=== PATIENT | male | born 1970 | race Caucasian/White ===

== ENCOUNTER 2019-11-29 21:17 | Inpatient (IN) ==
[2019-11-29] MEDS ORDERED: LIDOCAINE 1% 20 ML VIAL ONE (21:26)
[2019-11-29] MEDS ORDERED: TIROFIBAN 5,000 MCG/100 ML PREMIX IV ONE (21:35)
[2019-11-29] MEDS ORDERED: HEPARIN 5,000 UNIT/1 ML VIAL ONE (21:43)
[2019-11-29] MEDS ORDERED: MIDAZOLAM 2 MG/2 ML VIAL ONE (21:46)
[2019-11-29] MEDS ORDERED: HYDROmorphone 2 MG/1 ML VIAL ONE (21:46)
[2019-11-29] MEDS ORDERED: ZALEPLON 5 MG CAPSULE PO PRN (22:21)
[2019-11-29] MEDS ORDERED: ONDANSETRON 4 MG/2 ML VIAL IV PRN (22:21)
[2019-11-29] MEDS ORDERED: carvediloL 3.125 MG TABLET PO ONE (22:30)
[2019-11-29 23:42] LABS: CKMB % 8.6 %
[2019-11-29 23:44] LABS: Troponin I 1.77 NG/ML (0.00-0.045)
[2019-11-30] MEDS: ROSUVASTATIN 20 MG TABLET PO SCH ×2 (02:15→09:03)
[2019-11-30] MEDS ORDERED: GLUCAGON 1 MG VIAL IM PRN ×2 (04:14→13:30)
[2019-11-30] MEDS ORDERED: DEXTROSE 50% 25 GM/50 ML VIAL IV PRN ×3 (04:14→13:30)
[2019-11-30 05:07] LABS: Basophils % 0.2 % (0.0-0.8); Eosinophils # 0.1 10*3/uL (0.0-0.87); Eosinophils % 0.7 % (0.00-10.9); Hematocrit 37.6 VOL% (42.0-52.0); Hemoglobin 12.8 GM/DL (14.0-18.0); Immature Granulocytes % 0.6 %; Immature Granulocytes Absolute 0.06 #; Lymphocytes # 2.6 10*3/uL (1.4-4.0); Lymphocytes % 24.1 % (21.2-54.2); Mean Corpuscular Volume 96.2 FL (87-102); Mean Platelet Volume 10.1 FL (9.6-12.0); Monocytes % 6.2 % (1.7-12.7); Neutrophils % 68.2 % (38.7-73.9); Platelet Count 224 T/CUMM (130-400); Red Blood Count 3.91 MC/CUMM (3.8-5.5); Red Cell Distribution Width 12.7 % (9.3-17.3); White Blood Count 10.7 T/CUMM (4-12)
[2019-11-30 05:24] LABS: Albumin 3.3 G/DL (3.4-5.0); Bilirubin,Direct 0.12 MG/DL (0.0-0.20); Bilirubin,Indirect 0.3 MG/DL (0.0-1.0); Bilirubin,Total 0.4 MG/DL (0.2-1.0); Calcium 8.7 MG/DL (8.5-10.1); Osmolality,Calculated 276.7 MOS/KG (273-304); Total Protein 6.6 G/DL (6.4-8.3)
[2019-11-30 05:26] LABS: CKMB % 16.3 %; Calcium 8.7 MG/DL (8.5-10.1); Osmolality,Calculated 274.8 MOS/KG (273-304)
[2019-11-30 05:27] LABS: Troponin I 10.3 NG/ML (0.00-0.045)
[2019-11-30] MEDS: INSULIN REGULAR 100 UNIT/ML SUBCUT SCH ×3 (06:43→17:30)
[2019-11-30] MEDS ORDERED: carvediloL 3.125 MG TABLET PO SCH (08:00)
[2019-11-30 08:25] LABS: Barbiturates Screen,Urine Negative (Negative); Benzodiazepines Screen,Urine Positive (Negative); Cannabinoid Screen,Urine Positive (Negative); Opiate Screen,Urine Positive (Negative); Phencyclidine Screen,Urine Negative (Negative)
[2019-11-30] MEDS ORDERED: ASPIRIN EC 81 MG TABLET PO SCH (09:00)
[2019-11-30] MEDS ORDERED: ENOXAPARIN 40 MG/0.4 ML SYRINGE SUBCUT SCH (09:00)
[2019-11-30] MEDS ORDERED: ACETAMINOPHEN 325 MG TABLET PO PRN (09:02)
[2019-11-30] MEDS ORDERED: LOSARTAN 25 MG TABLET PO SCH (09:46)
[2019-11-30] MEDS: NITROGLYCERIN SL 0.4 MG TABLET SL PRN ×2 (11:17→12:57)
[2019-11-30] MEDS ORDERED: carvediloL 6.25 MG TABLET PO ONE (11:21)
[2019-11-30] MEDS ORDERED: ASCORBIC ACID 500 MG TABLET PO SCH (11:22)
[2019-11-30] MEDS ORDERED: diphenhydrAMINE CAP 25 MG CAPSULE PO PRN (11:22)
[2019-11-30] MEDS ORDERED: MAGNESIUM HYDROXIDE SUSP 30 ML UDCUP PO PRN (11:22)
[2019-11-30] MEDS ORDERED: CLORAZEPATE 3.75 MG TABLET PO PRN (11:29)
[2019-11-30] MEDS ORDERED: CLORAZEPATE 3.75 MG TABLET PO ONE (11:30)
[2019-11-30] MEDS: NITROGLYCERIN 2% OINT 1 INCH/GM PACK TOP SCH ×2 (11:50→11:59)
[2019-11-30] MEDS ORDERED: MAGNESIUM SULF RIDER 2 GM in PREMIX 1 EACH IV ONE (11:58)
[2019-11-30] MEDS ORDERED: NITROGLYCERIN DRIP 50 MG/250 ML BOTTLE IV PRN ×2 (12:40→19:26)
[2019-11-30] MEDS ORDERED: ALUM/MAG/SIMETH/LIDO VISC 1:1 30 ML BOTTLE PO PRN (12:40)
[2019-11-30] MEDS ORDERED: HEPARIN DRIP 25,000 UNITS/500 ML PREMIX IV SCH (13:00)
[2019-11-30] MEDS ORDERED: PANTOPRAZOLE 40 MG VIAL IV SCH (13:00)
[2019-11-30] MEDS ORDERED: MORPHINE 4 MG/1 ML VIAL ONE (13:09)
[2019-11-30] MEDS ORDERED: PAPAVERINE 60 MG/2 ML VIAL ONE (13:19)
[2019-11-30] MEDS ORDERED: VANCOMYCIN 500 MG VIAL ONE (13:20)
[2019-11-30] MEDS ORDERED: VANCOMYCIN 1,000 MG VIAL ONE (13:20)
[2019-11-30] MEDS ORDERED: MORPHINE 4 MG/1 ML VIAL IV ONE (13:22)
[2019-11-30] MEDS ORDERED: CEFUROXIME INJ 1,500 MG in SYRINGE 1 EACH IV ONE (13:30)
[2019-11-30] MEDS ORDERED: SODIUM CHLORIDE 0.9% 1,000 ML IV SCH (13:30)
[2019-11-30] MEDS: CHLORHEXIDINE 4% SOLN 118 ML BOTTLE TOP SCH ×2 (13:42→15:57)
[2019-11-30 14:49] LABS: ABG Base Excess -0.8 MMOL/L (-2.5-2.5); ABG HCO3 23.8 MMOL/L (20-26); ABG PCO2 44.3 MM HG (35-48); ABG PH 7.358 (7.35-7.45); ABG TCO2 22.1 MMOL/L (23-27); Glucose Heart Surgery 146 MG/DL (74-106); Hemoglobin Heart Surgery 12.4 G/DL (14.0-18.0); Ionized Calcium Arterial 1.22 MMOL/L (1.21-1.46); PCO2 Patient Temp Arterial 44.3 MMHG; PH Patient Temp Arterial 7.358; Patient Temperature 37 CELCIUS; Potassium Heart/CVR 3.7 MMOL/L (3.5-5.1); Sodium Heart/CVR 135 MMOL/L (135-145)
[2019-11-30 14:55] LABS: Bacteria,Urine Occasional /HPF (Few); Bilirubin,Urine Negative (Negative); Blood, Urine Moderate mg/dL (Negative); Glucose,Urine (UA) Negative (Negative); Hyaline Casts,Urine 3 /LPF (0-3); Ketones,Urine Negative (Negative); Mucus,Urine Occasional /LPF (Occasional); Nitrite,Urine Negative (Negative); Protein,Urine Negative; RBC,Urine 7 /HPF (0-4); Urine Appearance CLEAR (Clear); Urine Color Yellow (Yellow); Urine Specific Gravity 1.027 (1.001-1.035); WBC,Urine 1 /HPF (0-6)
[2019-11-30] MEDS ORDERED: ALBUMIN 5% 12.5 GM/250 ML VIAL IV ONE (15:29)
[2019-11-30] MEDS ORDERED: PHENYLEPHRINE DRIP 40 MG/250 ML PREMIX IV ONE (15:29)
[2019-11-30] MEDS ORDERED: fentaNYL 250 MCG/5 ML VIAL ONE (16:07)
[2019-11-30] MEDS ORDERED: PHENYLEPHRINE DRIP 20 MG/250 ML PREMIX IV ONE (16:07)
[2019-11-30] MEDS ORDERED: CALCIUM CHLORIDE 1,000 MG/10 ML VIAL IV ONE (16:07)
[2019-11-30] MEDS ORDERED: LIDOCAINE 2% 5 ML VIAL ONE ×2 (16:07→17:22)
[2019-11-30] MEDS ORDERED: MIDAZOLAM 2 MG/2 ML VIAL ONE (16:07)
[2019-11-30] MEDS ORDERED: HEPARIN/NACL 0.9% 2 UNITS/ML 500 ML IV ONE (16:07)
[2019-11-30] MEDS ORDERED: ETOMIDATE 40 MG/20 ML VIAL IV ONE (16:08)
[2019-11-30] MEDS ORDERED: VECURONIUM 10 MG VIAL IV ONE (16:08)
[2019-11-30] MEDS ORDERED: AMINOCAPROIC ACID 5,000 MG/20 ML VIAL ONE (16:08)
[2019-11-30] MEDS ORDERED: MIDAZOLAM 10 MG/2 ML VIAL ONE (16:08)
[2019-11-30] MEDS ORDERED: SODIUM CHLORIDE 0.9% 1,000 ML IV ONE (16:09)
[2019-11-30] MEDS ORDERED: SODIUM CHLORIDE 0.9% 250 ML IV ONE (16:09)
[2019-11-30] MEDS ORDERED: SEVOFLURANE 1 UNIT/15 MINUTE INH ONE (16:09)
[2019-11-30] MEDS ORDERED: LACTATED RINGERS 1,000 ML IV ONE (16:09)
[2019-11-30 16:20] LABS: Glucose Heart Surgery 281 MG/DL (74-106); Hemoglobin Heart Surgery 9.1 G/DL (14.0-18.0); Potassium Heart/CVR 4.5 MMOL/L (3.5-5.1); Sodium Heart/CVR 125 MMOL/L (135-145); VBG Base Excess 0.3 MEQ/L (0-4); VBG HCO3 25.4 MEQ/L (24-28); VBG Oxygen Saturation 75.2 %; VBG PCO2 43.2 MMHG (41-51); VBG PH 7.388; VBG PO2 40.8 MMHG (17-40)
[2019-11-30 16:52] LABS: Hematocrit Heart Surgery 28.7 PERCENT (42-52); Hemoglobin Heart Surgery 9.2 G/DL (14.0-18.0); PCO2 Patient Temp Venous 42.4 MM HG; PH Patient Temp Venous 7.382; PO2 Patient Temp Venous 36.4 MM HG; Potassium Heart/CVR 4.9 MMOL/L (3.5-5.1); VBG Base Excess 0.1 MEQ/L (0-4); VBG Oxygen Saturation 66.4 %; VBG PCO2 42.4 MMHG (41-51); VBG PH 7.382; VBG PO2 36.4 MMHG (17-40)
[2019-11-30] MEDS ORDERED: carvediloL 6.25 MG TABLET PO SCH (17:00)
[2019-11-30 17:19] LABS: ABG Base Excess -1.3 MMOL/L (-2.5-2.5); ABG HCO3 23.3 MMOL/L (20-26); ABG PCO2 41.2 MM HG (35-48); ABG PH 7.371 (7.35-7.45); ABG TCO2 21.7 MMOL/L (23-27); Glucose Heart Surgery 227 MG/DL (74-106); Hematocrit Heart Surgery 31.6 PERCENT (42-52); Hemoglobin Heart Surgery 10.2 G/DL (14.0-18.0); Ionized Calcium Arterial 1.26 MMOL/L (1.21-1.46); PCO2 Patient Temp Arterial 41.2 MMHG; PH Patient Temp Arterial 7.371; Patient Temperature 37 CELCIUS; Potassium Heart/CVR 4.1 MMOL/L (3.5-5.1); Sodium Heart/CVR 131 MMOL/L (135-145)
[2019-11-30] MEDS ORDERED: FUROSEMIDE 20 MG/2 ML VIAL ONE (17:22)
[2019-11-30] MEDS ORDERED: ALBUMIN 25% 25 GM/100 ML VIAL IV ONE (17:22)
[2019-11-30] MEDS ORDERED: PROTAMINE SULFATE 250 MG/25 ML VIAL IV ONE (17:22)
[2019-11-30] MEDS ORDERED: HEPARIN 10,000 UNIT/10 ML VIAL ONE (17:22)
[2019-11-30] MEDS ORDERED: MANNITOL 100 GM/500 ML BAG IV ONE (17:22)
[2019-11-30] MEDS ORDERED: methylPREDNISolone SOD SUC 1,000 MG/8 ML VIAL ONE (17:22)
[2019-11-30] MEDS ORDERED: DEXTROSE 5% KCL 20 MEQ 20 MEQ/1,000 ML BAG IV ONE (17:22)
[2019-11-30] MEDS ORDERED: MAGNESIUM SULFATE 5 GM/10 ML VIAL IV ONE (17:22)
[2019-11-30] MEDS ORDERED: SODIUM BICARBONATE 50 MEQ/50 ML VIAL IV ONE (17:22)
[2019-11-30] MEDS ORDERED: PROTAMINE SULFATE 50 MG/5 ML VIAL IV ONE ×2 (17:23→18:23)
[2019-11-30] MEDS: LACTATED RINGERS 1,000 ML IV PRN ×2 (18:15→19:10)
[2019-11-30 18:26] LABS: ABG Base Excess 0.2 MMOL/L (-2.5-2.5); ABG HCO3 24.6 MMOL/L (20-26); ABG PCO2 39.9 MM HG (35-48); ABG PH 7.403 (7.35-7.45); ABG PO2 84.9 MM HG (80-95); ABG TCO2 22.3 MMOL/L (23-27); Glucose Heart Surgery 196 MG/DL (74-106); Hematocrit Heart Surgery 34.6 PERCENT (42-52); Hemoglobin Heart Surgery 11.2 G/DL (14.0-18.0)
[2019-11-30 18:28] LABS: Basophils % 0.1 % (0.0-0.8); Eosinophils # 0.1 10*3/uL (0.0-0.87); Eosinophils % 0.4 % (0.00-10.9); Hematocrit 32.4 VOL% (42.0-52.0); Hemoglobin 11.1 GM/DL (14.0-18.0); Immature Granulocytes % 1.4 %; Immature Granulocytes Absolute 0.18 #; Lymphocytes # 0.7 10*3/uL (1.4-4.0); Lymphocytes % 5.9 % (21.2-54.2); Mean Corpuscular HGB Conc 34.3 GM/DL (32-36); Mean Corpuscular Volume 95.9 FL (87-102); Mean Platelet Volume 10.1 FL (9.6-12.0); Monocytes % 5.1 % (1.7-12.7); Neutrophils % 87.1 % (38.7-73.9); Platelet Count 176 T/CUMM (130-400); Red Blood Count 3.38 MC/CUMM (3.8-5.5); Red Cell Distribution Width 12.6 % (9.3-17.3); White Blood Count 12.5 T/CUMM (4-12)
[2019-11-30] MEDS ORDERED: SODIUM CHLORIDE 0.45% 1,000 ML IV SCH ×2 (18:30)
[2019-11-30 18:36] LABS: INR 1.1; PT Patient Result 11.8 SECS (9.8-11.9); Partial Thromboplastin Time 27.6 SECS (23.9-33.8)
[2019-11-30] MEDS ORDERED: MIDAZOLAM 2 MG/2 ML VIAL IV ONE (18:40)
[2019-11-30 18:45] LABS: Albumin 3.2 G/DL (3.4-5.0); Bilirubin,Total 0.9 MG/DL (0.2-1.0); Calcium 8.9 MG/DL (8.5-10.1); Osmolality,Calculated 273.2 MOS/KG (273-304)
[2019-11-30 19:24] LABS: Hematocrit Heart Surgery 35.1 PERCENT (42-52); Hemoglobin Heart Surgery 11.4 G/DL (14.0-18.0); PCO2 Patient Temp Venous 44.8 MM HG; PH Patient Temp Venous 7.39; PO2 Patient Temp Venous 35.6 MM HG; Potassium Heart/CVR 3.7 MMOL/L (3.5-5.1); VBG Base Excess 1.7 MEQ/L (0-4); VBG HCO3 25.3 MEQ/L (24-28); VBG PCO2 44.8 MMHG (41-51); VBG PH 7.39; VBG PO2 35.6 MMHG (17-40)
[2019-11-30] MEDS ORDERED: MIDAZOLAM 2 MG/2 ML VIAL IV PRN ×2 (19:44→20:09)
[2019-11-30] MEDS ORDERED: MORPHINE 4 MG/1 ML VIAL IV PRN ×2 (20:19→20:24)
[2019-11-30] MEDS ORDERED: MAGNESIUM SULF RIDER 2 GM in PREMIX 1 EACH IV PRN (20:27)
[2019-11-30] MEDS ORDERED: MAGNESIUM SULF RIDER 4 GM in PREMIX 1 EACH IV PRN (20:27)
[2019-11-30 20:32] LABS: ABG Base Excess 0.3 MMOL/L (-2.5-2.5); ABG HCO3 24.7 MMOL/L (20-26); ABG Oxygen Saturation 98.6 % (95-100); ABG PCO2 39.1 MM HG (35-48); ABG TCO2 22.3 MMOL/L (23-27); Glucose Heart Surgery 204 MG/DL (74-106); Hematocrit Heart Surgery 33.5 PERCENT (42-52); Hemoglobin Heart Surgery 10.8 G/DL (14.0-18.0); Potassium Heart/CVR 3.8 MMOL/L (3.5-5.1)
[2019-11-30] MEDS ORDERED: POTASSIUM CHLORIDE RIDER 10 MEQ in PREMIX 1 EACH IV PRN (20:35)
[2019-11-30] MEDS ORDERED: INSULIN REGULAR 100 UNIT/ML IV PRN (20:37)
[2019-11-30] MEDS ORDERED: ACETAMINOPHEN 650 MG SUPP RECTAL PRN (20:42)
[2019-11-30] MEDS ORDERED: ONDANSETRON 4 MG/2 ML VIAL IV PRN (20:54)
[2019-11-30] MEDS ORDERED: CALCIUM CHLORIDE 1,000 MG/10 ML SYRINGE IV PRN (20:55)
[2019-11-30] MEDS ORDERED: VECURONIUM 10 MG VIAL IV PRN ×2 (20:57→20:58)
[2019-11-30] MEDS ORDERED: PHENYLEPHRINE DRIP 40 MG/250 ML PREMIX IV PRN (20:59)
[2019-11-30] MEDS ORDERED: CEFUROXIME INJ 1,500 MG in SYRINGE 1 EACH IV SCH (21:00)
[2019-11-30] MEDS ORDERED: CHLORHEXIDINE 0.12% ORAL RINSE 60 ML BOTTLE SWISH/SPIT SCH (21:00)
[2019-11-30 21:03] LABS: Troponin I 13.1 NG/ML (0.00-0.045)
[2019-11-30] MEDS ORDERED: INSULIN REGULAR DRIP 100 ML IV PRN (21:15)
[2019-11-30] MEDS: POTASSIUM CHLORIDE RIDER 20 MEQ in PREMIX 1 EACH IV PRN ×2 (21:16→23:11)
[2019-11-30] MEDS ORDERED: ALBUMIN 5% 12.5 GM in PREMIX 1 EACH IV PRN (21:21)
[2019-11-30] MEDS ORDERED: FUROSEMIDE 40 MG/4 ML VIAL IV PRN (21:38)
[2019-11-30] MEDS: CHLORHEXIDINE 0.12% ORAL RINSE 60 ML BOTTLE SWISH/SPIT SCH (21:52)
[2019-11-30] MEDS: KETOROLAC 30 MG/1 ML VIAL IV SCH (22:00)
[2019-11-30 22:58] LABS: ABG Base Excess -0.1 MMOL/L (-2.5-2.5); ABG HCO3 24.3 MMOL/L (20-26); ABG Oxygen Saturation 98.3 % (95-100); ABG PCO2 38.9 MM HG (35-48); ABG PH 7.414 (7.35-7.45); ABG PO2 122.2 MM HG (80-95); ABG TCO2 25.5 MMOL/L (23-27); Glucose Heart Surgery 212 MG/DL (74-106); Hemoglobin Heart Surgery 11.5 G/DL (14.0-18.0); Potassium Heart/CVR 3.9 MMOL/L (3.5-5.1)
[2019-12-01 00:04] LABS: ABG Base Excess -0.8 MMOL/L (-2.5-2.5); ABG HCO3 23.5 MMOL/L (20-26); ABG Oxygen Saturation 98.1 % (95-100); ABG PCO2 37.7 MM HG (35-48); ABG PH 7.413 (7.35-7.45); ABG PO2 117.3 MM HG (80-95); ABG TCO2 24.7 MMOL/L (23-27); Glucose Heart Surgery 189 MG/DL (74-106); Hemoglobin Heart Surgery 11.6 G/DL (14.0-18.0)
[2019-12-01] MEDS: CEFUROXIME INJ 1,500 MG in SYRINGE 1 EACH IV SCH ×2 (00:46→12:00)
[2019-12-01 01:14] LABS: ABG Base Excess -0.5 MMOL/L (-2.5-2.5); ABG PCO2 37.3 MM HG (35-48); ABG PH 7.413 (7.35-7.45); ABG PO2 79.6 MM HG (80-95); ABG TCO2 21.3 MMOL/L (23-27); Glucose Heart Surgery 167 MG/DL (74-106); Hematocrit Heart Surgery 34.5 PERCENT (42-52); Hemoglobin Heart Surgery 11.2 G/DL (14.0-18.0)
[2019-12-01] MEDS: POTASSIUM CHLORIDE RIDER 20 MEQ in PREMIX 1 EACH IV PRN ×2 (01:39→04:27)
[2019-12-01 01:55] LABS: ABG Base Excess -0.4 MMOL/L (-2.5-2.5); ABG Oxygen Saturation 96.9 % (95-100); ABG PCO2 39.4 MM HG (35-48); ABG PH 7.397 (7.35-7.45); ABG TCO2 21.7 MMOL/L (23-27); Glucose Heart Surgery 159 MG/DL (74-106); Hematocrit Heart Surgery 34.8 PERCENT (42-52); Hemoglobin Heart Surgery 11.3 G/DL (14.0-18.0)
[2019-12-01 04:10] LABS: Basophils % 0.1 % (0.0-0.8); Hematocrit 32.8 VOL% (42.0-52.0); Immature Granulocytes % 0.6 %; Immature Granulocytes Absolute 0.08 #; Lymphocytes # 0.8 10*3/uL (1.4-4.0); Lymphocytes % 5.7 % (21.2-54.2); Mean Corpuscular HGB Conc 33.5 GM/DL (32-36); Mean Corpuscular Volume 96.2 FL (87-102); Mean Platelet Volume 10.2 FL (9.6-12.0); Monocytes % 4.1 % (1.7-12.7); Neutrophils % 89.5 % (38.7-73.9); Platelet Count 178 T/CUMM (130-400); Red Blood Count 3.41 MC/CUMM (3.8-5.5); Red Cell Distribution Width 12.6 % (9.3-17.3); White Blood Count 13.7 T/CUMM (4-12)
[2019-12-01 04:13] LABS: ABG Base Excess -0.3 MMOL/L (-2.5-2.5); ABG HCO3 23.9 MMOL/L (20-26); ABG Oxygen Saturation 94.9 % (95-100); ABG PCO2 37.1 MM HG (35-48); ABG PH 7.426 (7.35-7.45); ABG PO2 75.4 MM HG (80-95); Glucose Heart Surgery 127 MG/DL (74-106); Hemoglobin Heart Surgery 11.9 G/DL (14.0-18.0); Potassium Heart/CVR 4.1 MMOL/L (3.5-5.1)
[2019-12-01] MEDS: KETOROLAC 30 MG/1 ML VIAL IV SCH ×4 (04:27→21:58)
[2019-12-01 04:34] LABS: CKMB % 15.1 %
[2019-12-01 04:35] LABS: INR 1.1; PT Patient Result 11.5 SECS (9.8-11.9); Partial Thromboplastin Time 27.3 SECS (23.9-33.8)
[2019-12-01 04:36] LABS: Albumin 3.3 G/DL (3.4-5.0); Bilirubin,Total 0.5 MG/DL (0.2-1.0); Calcium 8.2 MG/DL (8.5-10.1); Osmolality,Calculated 274.8 MOS/KG (273-304)
[2019-12-01 04:45] LABS: Troponin I 22.9 NG/ML (0.00-0.045)
[2019-12-01] MEDS ORDERED: PANTOPRAZOLE 40 MG VIAL IV ONE ×2 (08:25→08:30)
[2019-12-01] MEDS: CHLORHEXIDINE 0.12% ORAL RINSE 60 ML BOTTLE SWISH/SPIT SCH ×2 (08:58→21:57)
[2019-12-01] MEDS ORDERED: GLUCAGON 1 MG VIAL IM PRN (09:48)
[2019-12-01] MEDS ORDERED: MAGNESIUM SULF RIDER 4 GM in PREMIX 1 EACH IV PRN (09:48)
[2019-12-01] MEDS ORDERED: MAGNESIUM HYDROXIDE SUSP 30 ML UDCUP PO PRN (09:48)
[2019-12-01] MEDS ORDERED: ONDANSETRON 4 MG/2 ML VIAL IV PRN (09:48)
[2019-12-01] MEDS ORDERED: ACETAMINOPHEN 325 MG TABLET PO PRN (09:48)
[2019-12-01] MEDS ORDERED: ALUMINUM/MAGNES/SIMETH MAX STR 30 ML UDCUP PO PRN (09:48)
[2019-12-01] MEDS ORDERED: ZALEPLON 5 MG CAPSULE PO PRN (09:48)
[2019-12-01] MEDS ORDERED: MAGNESIUM SULF RIDER 2 GM in PREMIX 1 EACH IV PRN (09:48)
[2019-12-01] MEDS ORDERED: DEXTROSE 50% 25 GM/50 ML VIAL IV PRN (09:48)
[2019-12-01] MEDS: ASPIRIN EC 81 MG TABLET PO SCH (10:00)
[2019-12-01] MEDS: carvediloL 6.25 MG TABLET PO SCH ×2 (10:00→17:06)
[2019-12-01] MEDS ORDERED: SODIUM CHLOR 0.45% KCL 20 MEQ 20 MEQ/1,000 ML BAG IV SCH (10:00)
[2019-12-01] MEDS: OMEPRAZOLE ODT 20 MG TABLET PO SCH (11:50)
[2019-12-01] MEDS: oxyCODONE/ACETAMINOPHEN 5-325 MG TABLET PO PRN (12:01)
[2019-12-01] MEDS: LORATADINE/PSEUDOEPH 5-120 MG (12 HR) TABLET PO SCH ×2 (16:42→23:13)
[2019-12-01] MEDS ORDERED: ROSUVASTATIN 20 MG TABLET PO SCH (21:00)
[2019-12-02] MEDS: CEFUROXIME INJ 1,500 MG in SYRINGE 1 EACH IV SCH (00:26)
[2019-12-02] MEDS: KETOROLAC 30 MG/1 ML VIAL IV SCH (03:37)
[2019-12-02] MEDS ORDERED: FUROSEMIDE 40 MG/4 ML VIAL IV ONE (06:00)
[2019-12-02 06:55] LABS: Basophils % 0.1 % (0.0-0.8); Eosinophils % 0.1 % (0.00-10.9); Hematocrit 33.2 VOL% (42.0-52.0); Hemoglobin 11.1 GM/DL (14.0-18.0); Immature Granulocytes % 0.7 %; Immature Granulocytes Absolute 0.12 #; Lymphocytes # 3.3 10*3/uL (1.4-4.0); Lymphocytes % 19.1 % (21.2-54.2); Mean Corpuscular HGB Conc 33.4 GM/DL (32-36); Mean Corpuscular Volume 99.1 FL (87-102); Mean Platelet Volume 10.6 FL (9.6-12.0); Monocytes % 7.8 % (1.7-12.7); Neutrophils % 72.2 % (38.7-73.9); Platelet Count 180 T/CUMM (130-400); Red Blood Count 3.35 MC/CUMM (3.8-5.5); Red Cell Distribution Width 12.7 % (9.3-17.3); White Blood Count 17.2 T/CUMM (4-12)
[2019-12-02 07:13] LABS: Albumin 3.3 G/DL (3.4-5.0); Bilirubin,Direct 0.16 MG/DL (0.0-0.20); Bilirubin,Indirect 0.4 MG/DL (0.0-1.0); Bilirubin,Total 0.6 MG/DL (0.2-1.0); CKMB % 9.2 %; Calcium 8.9 MG/DL (8.5-10.1); Osmolality,Calculated 279.7 MOS/KG (273-304); Total Protein 6.7 G/DL (6.4-8.3)
[2019-12-02 07:16] LABS: Troponin I 23.4 NG/ML (0.00-0.045)
[2019-12-02] MEDS: carvediloL 6.25 MG TABLET PO SCH ×2 (09:54→17:12)
[2019-12-02] MEDS: ASPIRIN EC 81 MG TABLET PO SCH (09:54)
[2019-12-02] MEDS: POTASSIUM CHLORIDE 20 MEQ TABLET PO PRN ×2 (09:54→11:07)
[2019-12-02] MEDS: FOLIC ACID 1 MG TABLET PO SCH (09:54)
[2019-12-02] MEDS: buPROPion XL 150 MG TABLET PO SCH (09:54)
[2019-12-02] MEDS: FERROUS SULFATE 325 MG TABLET PO SCH (09:55)
[2019-12-02] MEDS: oxyCODONE/ACETAMINOPHEN 5-325 MG TABLET PO PRN ×2 (09:55→22:07)
[2019-12-02] MEDS: DOCUSATE SODIUM 100 MG CAPSULE PO SCH (09:55)
[2019-12-02] MEDS: PANTOPRAZOLE 40 MG TABLET PO SCH (09:55)
[2019-12-02] MEDS: CHLORHEXIDINE 0.12% ORAL RINSE 60 ML BOTTLE SWISH/SPIT SCH ×2 (09:56→22:11)
[2019-12-02] MEDS: OMEPRAZOLE ODT 20 MG TABLET PO SCH (10:14)
[2019-12-02] MEDS: LORATADINE/PSEUDOEPH 5-120 MG (12 HR) TABLET PO SCH ×2 (11:11→23:08)
[2019-12-02] MEDS ORDERED: POTASSIUM CHLORIDE 20 MEQ TABLET PO ONE (12:54)
[2019-12-02] MEDS: EZETIMIBE 10 MG TABLET PO SCH (22:06)
[2019-12-02] MEDS: ASCORBIC ACID 500 MG TABLET PO SCH (22:07)
[2019-12-02] MEDS: ROSUVASTATIN 20 MG TABLET PO SCH (22:07)
[2019-12-03 05:51] LABS: Basophils % 0.2 % (0.0-0.8); Eosinophils # 0.1 10*3/uL (0.0-0.87); Hematocrit 31.2 VOL% (42.0-52.0); Hemoglobin 10.4 GM/DL (14.0-18.0); Immature Granulocytes % 0.7 %; Lymphocytes # 3.7 10*3/uL (1.4-4.0); Lymphocytes % 25.6 % (21.2-54.2); Mean Corpuscular HGB Conc 33.3 GM/DL (32-36); Mean Corpuscular Volume 98.7 FL (87-102); Mean Platelet Volume 10.6 FL (9.6-12.0); Monocytes % 11.1 % (1.7-12.7); Neutrophils % 61.4 % (38.7-73.9); Platelet Count 187 T/CUMM (130-400); Red Blood Count 3.16 MC/CUMM (3.8-5.5); Red Cell Distribution Width 12.9 % (9.3-17.3); White Blood Count 14.4 T/CUMM (4-12)
[2019-12-03 06:16] LABS: Calcium 8.8 MG/DL (8.5-10.1); Osmolality,Calculated 277.8 MOS/KG (273-304)
[2019-12-03 06:25] LABS: Albumin 2.9 G/DL (3.4-5.0); Bilirubin,Direct 0.15 MG/DL (0.0-0.20); Bilirubin,Indirect 0.5 MG/DL (0.0-1.0); Bilirubin,Total 0.6 MG/DL (0.2-1.0); CKMB % 4.3 %; Calcium 8.7 MG/DL (8.5-10.1); Osmolality,Calculated 277.8 MOS/KG (273-304); Total Protein 6.2 G/DL (6.4-8.3)
[2019-12-03 06:26] LABS: Troponin I 16.8 NG/ML (0.00-0.045)
[2019-12-03] MEDS: oxyCODONE/ACETAMINOPHEN 5-325 MG TABLET PO PRN (09:01)
[2019-12-03] MEDS: PANTOPRAZOLE 40 MG TABLET PO SCH (09:02)
[2019-12-03] MEDS: FERROUS SULFATE 325 MG TABLET PO SCH (09:02)
[2019-12-03] MEDS: ASPIRIN EC 81 MG TABLET PO SCH (09:02)
[2019-12-03] MEDS: ASCORBIC ACID 500 MG TABLET PO SCH ×2 (09:02→21:36)
[2019-12-03] MEDS: FOLIC ACID 1 MG TABLET PO SCH (09:02)
[2019-12-03] MEDS: buPROPion XL 150 MG TABLET PO SCH (09:03)
[2019-12-03] MEDS: carvediloL 6.25 MG TABLET PO SCH ×2 (09:03→16:17)
[2019-12-03] MEDS: OMEPRAZOLE ODT 20 MG TABLET PO SCH (09:03)
[2019-12-03] MEDS: CHLORHEXIDINE 0.12% ORAL RINSE 60 ML BOTTLE SWISH/SPIT SCH ×2 (09:04→21:37)
[2019-12-03] MEDS: DOCUSATE SODIUM 100 MG CAPSULE PO SCH (09:04)
[2019-12-03] MEDS: LORATADINE/PSEUDOEPH 5-120 MG (12 HR) TABLET PO SCH ×2 (09:05→21:38)
[2019-12-03] MEDS: POLYETHYLENE GLYCOL POWDER 17 GM PACK PO SCH (09:53)
[2019-12-03] MEDS: ROSUVASTATIN 20 MG TABLET PO SCH (21:37)
[2019-12-03] MEDS: EZETIMIBE 10 MG TABLET PO SCH (21:37)
[2019-12-04] MEDS: oxyCODONE/ACETAMINOPHEN 5-325 MG TABLET PO PRN (02:40)
[2019-12-04 06:44] LABS: Basophils % 0.2 % (0.0-0.8); Eosinophils # 0.3 10*3/uL (0.0-0.87); Eosinophils % 1.9 % (0.00-10.9); Hemoglobin 10.7 GM/DL (14.0-18.0); Immature Granulocytes % 0.9 %; Immature Granulocytes Absolute 0.14 #; Lymphocytes # 3.1 10*3/uL (1.4-4.0); Lymphocytes % 20.7 % (21.2-54.2); Mean Corpuscular HGB Conc 33.4 GM/DL (32-36); Mean Corpuscular Volume 97.6 FL (87-102); Mean Platelet Volume 10.8 FL (9.6-12.0); Monocytes % 10.3 % (1.7-12.7); Platelet Count 209 T/CUMM (130-400); Red Blood Count 3.28 MC/CUMM (3.8-5.5); Red Cell Distribution Width 12.7 % (9.3-17.3)
[2019-12-04 07:19] LABS: Calcium 8.6 MG/DL (8.5-10.1); Osmolality,Calculated 274.8 MOS/KG (273-304)
[2019-12-04 07:58] VITALS: BP 128/75
[2019-12-04] MEDS: PANTOPRAZOLE 40 MG TABLET PO SCH (08:29)
[2019-12-04] MEDS: ASCORBIC ACID 500 MG TABLET PO SCH (08:29)
[2019-12-04] MEDS: buPROPion XL 150 MG TABLET PO SCH (08:29)
[2019-12-04] MEDS: FERROUS SULFATE 325 MG TABLET PO SCH (08:29)
[2019-12-04] MEDS: carvediloL 6.25 MG TABLET PO SCH (08:29)
[2019-12-04] MEDS: OMEPRAZOLE ODT 20 MG TABLET PO SCH (08:30)
[2019-12-04] MEDS: FOLIC ACID 1 MG TABLET PO SCH (08:30)
[2019-12-04] MEDS: DOCUSATE SODIUM 100 MG CAPSULE PO SCH (08:30)
[2019-12-04] MEDS: POLYETHYLENE GLYCOL POWDER 17 GM PACK PO SCH (08:30)
[2019-12-04] MEDS: ASPIRIN EC 81 MG TABLET PO SCH (08:30)
[2019-12-04] MEDS: CHLORHEXIDINE 0.12% ORAL RINSE 60 ML BOTTLE SWISH/SPIT SCH (08:31)
[2019-12-04] MEDS ORDERED: metFORMIN 500 MG TABLET PO SCH (09:00)
[2019-12-04] MEDS: LORATADINE/PSEUDOEPH 5-120 MG (12 HR) TABLET PO SCH (09:01)
[2019-12-04] MEDS ORDERED: PNEUMOCOCCAL VACCINE (13 VALENT) 0.5 ML SYRINGE IM ONE (11:02)
== END 2019-12-04 11:31 | disposition home or self-care (01) | DRG 234 ==
LOC: EDBD → EDUNIT# → N.ED 21:17 → N.CL 21:24 → N.ICU 21:28 → N.CVR 11-30 14:07 → N.TELES 12-01 11:25
PROVIDERS: ADMIT Internal Medicine Cardiovascular Disease; ATTEND Internal Medicine Cardiovascular Disease
PROC: CLCCHCL (ICD-10-PCS; 2019-11-29 22:00)